=== PATIENT | female | born 2000 ===

== ENCOUNTER 2023-01-04 15:42 | Emergency (ER) | payer SELFPAY ==
[2023-01-04 15:45] VITALS: BP 119/68; PULSE 89; RESP 16; TEMP 36.2; O2SAT 100; BMI 25.0
--- NOTE | 2023-01-04 16:52 | PC.NURSE ---
[employer] contact: Chuck: : Office is [phone]
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
[2023-01-04] MEDS: ACETAMINOPHEN 325 MG TABLET 650 MG PO (17:30)
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
--- NOTE | 2023-01-04 18:09 | CM.DPC ---
Sociology Faculty Member Note Cont. Update: Deputy [employer] Marshal is en route to the ED to assist with a motel voucher for tonight, will instructions for pt to call the [facility] tomorrow morning for additional stay nights until Thu, when she will travel to [place] to stay with family.
--- NOTE | 2023-01-04 18:57 | PC.NURSE ---
Updated Chuck (office for [employer]) updated via phone. Patient given number for Chuck as well as [facility] office phone number. Encouraged to call.
--- NOTE | 2023-01-04 18:59 | CM.SWNOTE ---
Updated Plan: Pt was provided with a paid hotel voucher for tonight at [facility]. She was provided with food to take with her, as well the the business card to f/u in the morning with the [facility] for an additional 2-nights, with the plan for her to travel to [place] on Thursday with family assisting with coordination. No further BINDER FOLDER OPERATOR needs identified at this time.
[2023-01-04] MEDS: KETOROLAC 30 MG/ML VIAL IM (19:01)
== END 2023-01-04 19:13 | disposition home or self-care (01) ==
PROVIDERS: Emergency Provider Physician Assistant
DX: S09.90XA Unspecified injury of head, initial encounter (principal); R51.9 Headache, unspecified; R68.84 Jaw pain; M54.2 Cervicalgia; R22.0 Localized swelling, mass and lump, head; Y04.0XXA Assault by unarmed brawl or fight, initial encounter
CPT/HCPCS: 70450; 72125; 96372; 99284; J1885